=== PATIENT | female | born 1955 | race Caucasian/White ===

== ENCOUNTER → 2021-07-30 11:30 | Outpatient (CLI) | payer OTHER, SELFPAY | PROVIDERS: PCP Physician Assistant; Visit Provider Urology | DX: N32.89 Other specified disorders of bladder (principal); N39.41 Urge incontinence; N39.44 Nocturnal enuresis; R82.998 Other abnormal findings in urine; Z72.0 Tobacco use | CPT/HCPCS: 81002; 87077; 87086; 87147; 99213 ==